=== PATIENT | female | born 1955 | race Caucasian/White ===

== ENCOUNTER → 2019-09-29 | Outpatient (CLI) | payer MEDICARE, MEDICAID ==
--- NOTE | 2019-09-30 09:05 | MRI ---
EXAM DESCRIPTION: Cervical Spine: MRI. CLINICAL HISTORY: 64 years Female MULTIPLE SCLEROSIS COMPARISON: Cervical TECHNIQUE: Multiplanar, high-field MRI, multiple sequences, non-contrast Cervical spine.. Study was performed without IV gadolinium which decreases sensitivity FINDINGS: C2-C3: Disc desiccation with no bulging. Minimal endplate changes inferior C2. Posterior elements unremarkable. Canal and neural foramina are patent. C3-C4: Disc desiccation with disc space maintained. Minimal posterior bulge, almost contacting the anterior right ventral cord. Posterior ligament thickening. Moderate canal narrowing. Mild bilateral neural foraminal narrowing. Facet joints are unremarkable. Minimal concavity inferior C3 endplate. C4-C5: Posterior disc bulge in the midline abutting the cord. Posterior ligament thickening. Mild central canal stenosis. Minimal hypertrophic changes in arthrosis right facet. Left facet negative. Bilateral neural foramina are patent. C5-C6: Marked narrowing disc space. Anterior endplate spurs. Bilateral small uncinate spurs. Bilateral moderate neural foraminal narrowing. Mild canal narrowing. Bilateral facet joints are negative. C6-C7: Moderate to severe disc space loss. Disc desiccation. Anterior endplate ridging. Posterior disc remnant bulge with spurs impressing on the midline cord and more to the right of midline with canal stenosis. Possible compromise right C7 nerve. Bilateral uncinate spur hypertrophy. Bilateral disc spur complex encroaching on the foramina with bilateral mild foraminal stenosis. Likely compromise left C7. C7-T1: Moderate disc space loss with posterior disc osteophyte bulge abutting the cord. Posterior ligament thickening with mild central canal stenosis. Bilateral uncinate spurs and hypertrophic right facet arthrosis with right neural foraminal stenosis. Moderate left neural foraminal narrowing. Normal signal in the T1-T2 disc with no bulging. Disc space preserved. Canal and neural foramina are patent. Facet joints negative. Spinal alignment limited lordosis.. Increased FLAIR cord signal at the C2 level and disc space C2 and C3. Also increased FLAIR signal in the natan and the dorsal brainstem at the level of the natan.. Atlantoaxial joint minimal arthrosis and hypertrophy. Base of the cerebellar tonsils is above the foramen magnum. Atrophy noted in the bilateral cerebellopontine. Paravertebral soft tissues negative.. Vertebral bodies are not compressed at any level. Otherwise normal marrow signal in the remaining vertebral bodies and the posterior elements. IMPRESSION: 1. Multiple levels of disc desiccation. Disc desiccation endplate changes and spurs with canal and foraminal compromise most prominent at C5-C6, C6-C7, and C7-T1. 2. Multifactorial mild central canal stenosis C7-T1 with right neural foraminal stenosis. Possible compromise right C8 nerve. 3. Moderate to severe spondylosis C6-C7 with bilateral disc spur complex causing neuroforaminal stenosis. Probable compromise bilateral C7 nerves. 4. Mild spondylosis and canal narrowing at C5-C6. Moderate bilateral neural foraminal narrowing. 5. Increased FLAIR signal in the cord at the C2-C3 level and also increased FLAIR signal in the ntaan in the dorsal cord structures at the level of the natan. These are most likely multiple sclerosis plaques. Electronically signed by: Dougie Skaggs MD 09/30/2019 9:04 AM [facility]
== END ==
LOC: MRI 11:00
PROVIDERS: ATTEND Psychiatry & Neurology Neurology
DX: G35 Multiple sclerosis (principal); M50.31 Other cervical disc degeneration, high cervical region; M50.322 Other cervical disc degeneration at C5-C6 level; M50.323 Other cervical disc degeneration at C6-C7 level; M48.03 Spinal stenosis, cervicothoracic region; M47.892 Other spondylosis, cervical region

== ENCOUNTER → 2019-10-11 | Outpatient (CLI) | payer MEDICARE, MEDICAID ==
--- NOTE | 2019-10-11 16:17 | MRI ---
EXAM DESCRIPTION: Brain w/oContrast: MRI. CLINICAL HISTORY: MULTIPLE SCLEROSIS COMPARISON: MRI scan brain without and with IV gadolinium, 28 Mar 2013. TECHNIQUE: Multiplanar, high-field MRI unit, multiple diffusion sequences, multiple conventional sequences without contrast. FINDINGS: Focal area of hyperintense signal in the superior subcortical and posterior right frontal lobe, on the B 1000 diffusion image with corresponding decreased signal in the same region on the ADC map. This is consistent with a acute or subacute region of infarction or significant ischemia, most likely related to right middle cerebral artery watershed region. This abnormality is hyperintense on FLAIR and T2 images and gradient sequence with no magnetic blooming. Isointense signal on T1 imaging with no hemorrhage. Only focal mass effect. No other lesions seen on diffusion imaging.. Multiple bilateral confluent lesions showing hyperintense FLAIR and T2-weighted signal in the periventricular white matter, mostly around the frontal horns and the posterior ventricles and occipital horns. These are slightly progressive since the prior study. Bilateral lesions in the centrum semiovale and corpus callosum stable. Bilateral sub-cortical white matter, frontal and parietal lobes more than occipital lobes and more on the right than the left. Slight progression since the prior study. Bilateral thalamic lesions are new since the prior study. Small focal lesion at the junction of the posterior lateral left basal ganglia and posterior left external capsule new since the prior study.. No hemorrhage, no cerebral edema, no mass-effect. Hyperintense FLAIR and T2 signal in the central natan, new since the prior study, with no hemorrhage or mass effect. Normal signal in the cerebellar hemispheres. Cortical sulci, ventricles, and other CSF spaces, and the subdural spaces are normally configured for patients age. No effacement or displacement. No midline shift. No extra-axial hemorrhage. Normal flow signal void in the major vessels of the [place], and the venous sinuses. IACs are symmetric bilaterally. Normal signal in the bilateral mastoid air cells. No mass effect in the bilateral cerebellopontine angles. Pituitary gland occupies most of the sella. Base of the cerebellar tonsils is slightly above the foramen magnum. Mucoperiosteal thickening in most of the paranasal sinus peña including frontal sinus and one of the sphenoid cavities.. The bony calvarium is intact. IMPRESSION: 1. Small region of acute or subacute infarction or significant ischemia, in the superior lateral right frontal cortex, with diffusion restriction and abnormal white matter signal on all sequences, but no hemorrhage. Focal mass effect. 2. New white matter lesions/plaques in the posterior lateral left basal ganglia, posterior left and external capsule, bilateral thalami, and central natan, since prior study 6 years ago. Progressive lesions in the bilateral periventricular white matter, and subcortical white matter. Stable lesions in the corpus callosum and centrum semiovale bilaterally. 3. Diffuse chronic paranasal pansinusitis. Electronically signed by: Dougie Skaggs MD 10/11/2019 4:15 PM [facility]
== END ==
LOC: MRI 10:10
PROVIDERS: ATTEND Psychiatry & Neurology Neurology
DX: G35 Multiple sclerosis (principal); J32.9 Chronic sinusitis, unspecified